=== PATIENT | male | born 1955 | race Caucasian/White ===

== ENCOUNTER → 2016-07-22 | Outpatient (CLI) | payer OTHER | LOC: BRMIMAGING 08:40 | PROVIDERS: ATTEND Internal Medicine | DX: M25.872 Other specified joint disorders, left ankle and foot (principal); M70.21 Olecranon bursitis, right elbow; M70.22 Olecranon bursitis, left elbow; M77.8 Other enthesopathies, not elsewhere classified | CPT/HCPCS: 73080-PO; 73630-PO ==